=== PATIENT | male | born 1985 | race Caucasian/White ===

== ENCOUNTER 2019-08-05 22:08 | Emergency (ER) | payer SELFPAY ==
[~2019-08-05] VITALS: Ht 175.3 cm; Wt 68.0 kg
[2019-08-05 23:30] VITALS: BP 122/79
[2019-08-05] MEDS ORDERED: ACETAMINOPHEN 325MG TABLET PO ONE (23:30)
== END 2019-08-06 02:08 | disposition home or self-care (01) ==
LOC: ER 22:08
DX: F15.10 Other stimulant abuse, uncomplicated (principal); R20.2 Paresthesia of skin
CPT/HCPCS: 99283

== ENCOUNTER 2019-09-29 07:12 | Emergency (ER) | payer SELFPAY ==
[~2019-09-29] VITALS: Ht 167.6 cm; Wt 65.0 kg
[2019-09-29] MEDS ORDERED: KETOROLAC 60MG/2ML VIAL IM ONE (08:15)
[2019-09-29] MEDS ORDERED: MORPHINE SULFATE 10 MG/ML CPJ IM ONE (09:15)
[2019-09-29] MEDS ORDERED: LORAZEPAM 1MG TABLET PO ONE (09:15)
[2019-09-29 10:40] VITALS: BP 128/68
== END 2019-09-29 10:45 | disposition home or self-care (01) ==
LOC: ER 07:21
DX: S43.085A Other dislocation of left shoulder joint, initial encounter (principal); W18.39XA Other fall on same level, initial encounter; Y93.89 Activity, other specified; Y92.89 Other specified places as the place of occurrence of the external cause; Y99.8 Other external cause status; F15.10 Other stimulant abuse, uncomplicated
CPT/HCPCS: 23650; 73030; 96372; 99284; J1885; J2270; L3670